=== PATIENT | female | born 1980 | race Caucasian/White ===

== ENCOUNTER → 2019-07-04 | Outpatient (CLI) | payer OTHER ==
--- NOTE | 2019-07-04 11:47 | KCIC ---
MR of the left ankle HISTORY: Left ankle sprain. Pain anterior, and at the heel. Pain chronic after a sprain several months ago. TECHNIQUE: Routine multiplanar sequences are obtained. FINDINGS: Peroneal tendons are intact. Anterior talofibular ligament is thick and hypointense as is the calcaneofibular ligament compatible with scarring. Scarring also seen at the posterior talofibular ligament. No acute disruption. Tibiofibular syndesmotic ligaments appear intact. Posterior tibial and flexor tendons are intact. Medial ligament structures appear intact. Anterior tibial and extensor tendons are intact. Achilles tendon intact. No acute plantar fasciitis. Subtalar joints are patent. Tarsal sinus is intact. Talar dome is intact. Cystic-type marrow changes within the distal calcaneus appears benign and nonaggressive. No aggressive bone destruction or acute fracture. No significant joint effusion. IMPRESSION: 1. Scarring of the lateral collateral ankle ligaments. 2. No acute findings. Electronically signed by: Enrique Golden MD (07/04/2019 11:44 AM) [id number]
== END | disposition home or self-care (01) ==
LOC: KCIC MRI 08:27
PROVIDERS: ATTEND Orthopaedic Surgery
DX: M24.272 Disorder of ligament, left ankle (principal)
CPT/HCPCS: 73721